=== PATIENT | male | born 1955 | race Caucasian/White ===

== ENCOUNTER 2024-10-26 08:49 | Outpatient (AMB) | payer OTHER, BC, SELFPAY ==
--- OUTSIDE RECORDS SUMMARY | 2024-10-26 08:59 | XMS_ITS | Encounter Summary ---
Author Organization [facility] Address [address] [place] [address] Care Team Providers Care Driveway Sealer Name Role Phone Sonali Rodriguez DO Primary Care Provider [phone] Reason for Visit * Reason Onset Date Comments information needed/screening recommended 025 Encounter Details Date Type Department Care Team ([facility] st Contact Info) Description 10/07/2024 Telephone Internal Medicine - [place] [address] [place] [phone] Sonali Rodriguez DO [address] [place] [address] information needed/screening recommended Social History Tobacco Use Types Packs/Day Years Used Date Smoking Tobacco: Former Cigarettes 0.5 13 0 04/13/1967 - 04/13/1980 Smokeless Tobacco: Never Alcohol Use Standard Drinks/Week Comments Yes 7 (1 standard drink = 0.6 oz pur e alcohol) 3 Housing Instability Answer Date Recorde d Are you worried that in the next 2 months you may not have stable housing? No 06/01/2024 Food Access & Nutrition Answer Date Rec orded Do you have access to a vari ety of food including fruits and vegetables? Yes 06/01/2024 Access to Healthcare Answer Date Record ed Within the last 3 months, [employer] many times did you visit the emergency department for your medical care? 1 06/01/2024 Health Literacy Answer Date Recorded How often do you need to hav e someone help you when you read instructions, pamphlets, or other written material from your doctor or pharmacy? Never 06/01/2024 Caregiver: How often do you need to have someone help you when you read instructions, pamphlets, or other written material from your doctor or pharmacy? Not on file 06/01/2024 Financial Risk Answer Date Recorded How hard is it for you to pa y for the very basics like food, housing, medical care, and air conditioning / heating? Somewhat hard 06/01/2024 Transportation Answer Date Recorded Has the lack of transportati on kept you from meetings, work, or from getting things needed for daily living? No Has the lack of transportati on kept you from medical appointments or from getting medications? No 06/01/2024 Social Isolation Answer Date Recorded How often do you feel lonely or isolated from th ose around you? Never 06/01/2024 Food Risk Answer Date Recorded Within the past 12 months we worried whether our food would run out before we got money to buy more. Never true 06/01/2024 Within the past 12 months th e food we bought just didn't last and we didn't have money to get more. Never true 06/01/2024 Dependent Care Answer Date Recorded Do you need help finding or paying for care for your loved ones. For example, exceptional children's teacher or elderly care for an older adult? No 06/01/2024 Education Answer Date Recorded Do you think completing more education or training, like finishing a GED, going to college, or learning a trade, would be helpful for you? Yes 06/01/2024 Employment and Income Answer Date Recor ded During the last four weeks, have you been actively looking for work? No 06/01/2024 Living Situation Answer Date Recorded What is your living situation? 0 06/01/2024 Interpersonal Safety Answer Date Record ed Physical Abuse 08/17/2024 Verbal Abuse 08/17/2024 Sex and Gender Information Value Date Recorded Sex Assigned at Not on file Legal Sex Male 1:29 PM EST Gender Identity Not on file Sexual Orientation Not on file documented as of this encounter Progress Notes * Micah Lua NP - 10/07/2024 4:19 PM EDT Screening tests can wait until PCP is back * Chanel Costello MA - 10/07/2024 11:45 AM EDT SHAHID: 2.26.25 Pendin.28.25 Order pending. * Marisol Garcia - 10/07/2024 11:36 AM EDT Pt called today stating that he got a message on [employer] that recommended that he get an abdominal aortic screening done. Please advise pt thank you documented in this encounter Plan of Treatment Upcoming Encounters Date Type Department Care Team (Late st Contact Info) Description 11/07/2024 9:00 AM EDT Office Visit Internal Medicine - [address] [phone] Tricia Patton NP [address] [place] [id number] 12/07/2024 9:30 AM EDT Office Visit Internal Medicine - [address] [phone] Sonali Rodriguez DO [address] [place] [id number] 01/12/2025 1:00 PM EDT Consult Vascular Surgery - [place] [address] [place] [phone] Tricia Rolle PA [address] [place] [id number] documented as of this encounter Visit Diagnoses Not on filedocumented in this encounter Additional Health Concerns Assessment Noted Time PHQ-9 Depression Total Score: 0 06/01/19 25 4:36 PM EST documented as of this encounter Care Teams Driveway Sealer Relationship Specialty Start Date End Date Sonali Rodriguez DO [address] [place] [address] [place] [address] PCP - General Internal Medicine 04/07/24 documented as of this encounter
--- OUTSIDE RECORDS SUMMARY | 2024-10-26 08:59 | XMS_ITS | Clinical Summary ---
Author Organization [facility] Address [address] [place] [address] Care Team Providers Care Engineer Specialist Name Role Phone Tigre Mora MD Primary Care Provider Unavailable Allergies No known active allergies Medications Medication Sig Dispensed Refills Start Date End Date Status lisinopril (PRINIVIL,ZESTRIL) tablet 5 mg Take 5 mg by mouth daily. 0 06/30/2020 Active pravastatin (PRAVACHOL) tablet 40 mg Take 60 mg by mouth daily. 0 06/30/2020 Active Lumigan 0.01 % ophthalmic drops 0 05/15/2020 Active betaxolol (BETOPTIC) 0.5 % ophthalmic solution 1 drop 2 (two) times a day. 0 Active tafluprost, PF, (Zioptan) 0.0015 % SOLN 0 A ctive Active Problems Problem Noted Date Diagnosed Date Primary osteoarthritis of right knee 10/21/2021 Tear of medial meniscus of knee, subsequent enco unter 10/21/2021 Family History Medical History Relation Name Comments Heart disease Brother Hyperlipidemia Brother Hypertension Brother Heart disease Father Heart disease Sister Relation Name Status Comments Brother Father Sister Social History Tobacco Use Types Packs/Day Years Used Date Smoking Tobacco: Former Smokeless Tobacco: Never Alcohol Use Standard Drinks/Week Comments Yes 0 (1 standard drink = 0.6 oz pur e alcohol) Sex and Gender Information Value Date Recorded Sex Assigned at Not on file Gender Identity Not on file Sexual Orientation Not on file Job Start Date Occupation Industry Not on file Not on file Not on file Last Filed Vital Signs Vital Sign Reading Time Taken Comments Blood Pressure - - Pulse - - Temperature - - Respiratory Rate - - Oxygen Saturation - - Inhaled Oxygen Concentration - - Weight 83 kg (183 lb) 03/10/2022 1:49 PM EST Height 170.2 cm (5' 7 ) 03/10/2022 1:49 PM EST Body Mass Index 28.66 03/10/2022 1:49 PM EST Plan of Treatment Health Maintenance Due Date Last Done Comments Hepatitis C Screening 1955 Depression Screening 1966 Preventative Health Evaluation 1972 Colon Cancer Screening (Colonoscopy) 10/21/1999 Fall Risk Assessment 10/21/2019 COVID-19 Vaccine ( season) 2023 08/29/2021, 01/30/2021, 06/28/2020, Additional history exists Influenza Vaccine (#1) 2024 2, 01/08/2021, 02/09/2020, Additional history exists RSV Adult > 60+ Yrs or (1 - 1-dose 75+ series) 2029 DTap / Tdap / Td (3 - Td or Tdap) 01/08/2031 01/08/2021, 05/26/2016, 11/02/2005 Pneumococcal Vaccine Completed 05/06/2021, 02/09/20 20 Shingrix-Zoster Vaccine Completed 04/01/2022, 04/02 Hepatitis B Vaccines Aged Out No long er eligible based on patient's age to complete this topic RSV Ped < 20 months Aged Out No longe r eligible based on patient's age to complete this topic Care Teams Engineer Specialist Relationship Specialty Start Date End Date Tigre Mora MD PCP - General Family Medicine 10/21/21
--- OUTSIDE RECORDS SUMMARY | 2024-10-26 09:00 | XMS_ITS ---
Author Name [facility] Organization Unknown Care Team Organization Name Specialty Phone Email Start Date End Da c[facility] EBER [facility] 03/13/2022 11/30/2023
--- OUTSIDE RECORDS SUMMARY | 2024-10-26 09:00 | XMS_ITS | Data Portability ---
Author Organization [place] - [facility], Allergy Address [address] [place] [address] Care Team Providers Care Cuff Setter Overlock Name Role Phone EBER CHAVARRIA Primary Care Provider [phone] Assessment Encounter Date Assessment Date Assessment LastModified by Organization Details LastModified Time 12/16/2023 12/16/2023 Physical exam revealed impacted cerumen bilaterally. Debrided to patient tolerance. No view was achieved of the tympanic membrane on either side. Patient is due for annual audiogram in a few weeks. I have recommended use of mineral oil in the interim, return for debridement, and we will update audiometric testing once the canals are clear. All questions were answered. [email or web address] Not available 12/16/2023 10:29:42 01/29/2024 01/29/2024 Cerumen successfully removed bilaterally, which patient tolerated well. Recommend audiometric testing but patient did not have time to stay for this today. He will return in 3 months for cerumen removal when updated audiometric testing. He will call in the interim with any issues that arise or any sudden change in hearing. Not available 01/29/2024 16:33:35 02/08/2024 02/08/2024 Recommendations : Follow up with referring provider. Amplification, pending medical clearance and pt interest. [email or web address] Not available 02/08/2024 09:26:09 05/03/2024 05/03/2024 Cerumen successfully removed bilaterally, which patient tolerated well. As the ears were rather deeply impacted, recommend switching from 6-month visits to 4-month. 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 Skin was intact and well moisturized today without evidence of flaking or otorrhea. Patient will be due for annual audiometric testing in January. Not available 05/03/2024 09:11:37 08/24/2024 08/24/2024 68yo male presents for cerumen impaction removal. Cerumen impaction removed bilaterally, which patient tolerated well. Otologic exam demonstrated TMs are intact with well-aerated middle ear spaces. Recommend a few drops of mineral oil nightly for 1 week prior to debridements. Recommend 3-4 month follow-up for cerumen removal, sooner with issues. [email or web address] Not available 08/24/2024 09:41:03 Plan of Treatment Reminders Order Date Submit Date Provider Last Modified By Organization Details Last Modified Time Details Appointments Establish ed 15 2024 09:30A M HERMAN SYKES PA-C Not available Not available Not available Lab None recorded. Referral None recorded. Procedures None recorded. Surgeries None recorded. Imaging None recorded. Medication Orders None recorded. Patient TargetsNo targets recorded. Patient InstructionsNo instructions recorded. Reason for Referral None Reported. Results Created Date Observation Date Name Description Value Unit Range Abnormal Flag Note LastModifiedBy Organization Detail LastModifiedTime 12/01/1905/23/2021 imagi ng/di agnos tic resul t No observ ation record ed. [email or web address] Not Available 20:24:18 12/01/19 24 01/23/2023 imagi ng/di agnos tic resul t No observ ation record ed. [email or web address] Not Available 20:24:22 12/01/19 24 02/13/2020 imagi ng/di agnos tic resul t No observ ation record ed. [email or web address] Not Available 20:24:35 12/01/1903/07/2019 imagi ng/di agnos tic resul t No observ ation record ed. [email or web address] Not Available 20:24:38 02/08/20 audio gram No observ ation record ed. [email or web address] Not Available 01/12 09:47:38 Result Notes None recorded. Problems Name Problem SNOMED Code Status Onset Date Resolution Date Notes Provider Name and Address Organization Details Recorded Time Bilateral tinnitus 45838903226 02 Active 2014 Tinnitus, bilateral ; Note: Date Diagnosed : 01/18/2015 10:11 AM (H93.13) Not Available [facility] 4 02:36:43 Asymmetri angelica sensorine ural hearing loss 964372176 Active 2014 Sensorine ural hearing loss asymmetri c; Note: Date Diagnosed : 07/20/2014 2:40 PM (389.16) Not Available [facility] 4 02:36:45 Superfici al mycosis 290148217 Active 2016 Other specified superfici al mycoses; Note: Date Diagnosed : 7 6:51 AM (B36.8) Not Available [facility] 4 02:36:42 Infective otitis externa of right ear 47490884930 48615 Active 2019 Other infective otitis externa, right ear; Note: Date Diagnosed : 08/08/2019 12:47 PM (H60.391) Not Available [facility] 4 02:36:34 Candidal otitis externa 87648942 Active 2014 Otomycosi s; Note: Date Diagnosed : 07/20/2014 2:40 PM (112.82) ; Start Date : 5 Stephany l otitis externa; Note: Date Diagnosed : 01/18/2015 9:16 AM (B37.84) [mapped from ICD9 code: 112.82] Not Available [facility] 4 02:36:41 Acute eczematoi d otitis externa 79856978 Active 2020 Acute eczematoi d otitis externa, bilateral ; Note: Date Diagnosed : 08/13/2020 9:31 AM (H60.543) Not Available [facility] 4 02:36:39 Impacted cerumen of bilateral ears 47633677975 49859 Active 2014 Impacted cerumen, bilateral ; Note: Date Diagnosed : 01/18/2015 9:16 AM (H61.23) [mapped from ICD9 code: 380.4] Not Available [facility] 4 02:36:45 Impacted cerumen 26385645 Active 2014 Impacted wax; Note: Date Diagnosed : 07/20/2014 2:40 PM (380.4) Not Available [facility] 4 02:36:33 Impacted cerumen in left ear 14806746034 89927 Active 2021 Impacted cerumen, left ear; Note: Changed from H61.21 to H61.22 (01/24/20 23 12:43 PM) , Date Diagnosed : 05/23/2021 9:07 AM (H61.21) Not Available [facility] 4 02:36:33 Sensorine ural hearing loss of bilateral ears 293749672 Active 2014 Sensorine ural hearing loss, bilateral ; Note: Date Diagnosed : 01/18/2015 9:41 AM (H90.3) Not Available [facility] 4 02:36:43 Seborrhei c dermatiti s 45902366 Active 2023 Seborrhei c dermatiti s, unspecifi ed; Note: Date Diagnosed : 07/08/2023 10:28 AM (L21.9) Not Available [facility] 4 02:36:41 Problem Notes None recorded. Procedures Surgical History Date Name Laterality Status Provider Name and Address Organization Details Recorded Time 5 Cerumen removal without microscope bilat completed HERMAN SYKES PA-C [address] [facility],[address], [address], [place] - [facility] 08/24/2024 09:39:50 5 Cerumen removal without microscope bilat completed HOLLEY COOK PA-C [address] [facility],[address], [address], [place] - [facility] 05/03/2024 09:10:20 4 Air & Speech Audio with Tymps - 70823, 30920 & 88246 completed FLOR HANLEY [address] [facility],[address], [address], [place] - [facility] 02/08/2024 09:25:38 4 Cerumen removal without microscope bilat completed HOLLEY COOK PA-C [address] [facility] [address], [place], [address], [facility] - [facility] 01/29/2024 16:33:12 4 Cerumen removal without microscope bilat completed HOLLEY COOK PA-C [address] [facility] [address], [place], [address], [facility] - [facility] 12/16/2023 10:29:01 Imaging Results None recorded. Procedure Notes None recorded. Medical Equipment None Reported. Medications Name Sig Start Date Stop Date Status Note LastModified by Organization Details LastModified Time cyclobenz aprine 10 mg tablet active Not Available Not Available No t Available pravastat in 40 mg tablet active Not Available Not Available Not Available clotrimaz ole-betam ethasone 1 %-0.05 % lotion 07/07 completed Medicatio n ID: [id number] Pr escribed By Name: FRANKIE Curry Name: Lotrisone Send Method: E-Prescri bed Subs Allowed: subs OK Specia l Instructi on: apply to external ear tid X 2 weeks Med icationGe nericName : Lotrisone Not Available Not Available Not Available brinzolam yodit 1 % eye drops,danna pension active Not Available Not Available Not Available aspirin 81 mg tablet,de layed release 2014 [place] Medic[place] ID: [id number] Dur ation Value: 90 Brand Name: aspirin S end Method: E-Prescri bed Subs Allowed: subs OK Medica tionGener icName: aspirin Not Available Not Available Not Available ciclopiro x 8 % topical solution 2016 active Medicatio n ID: [id number] Du ration Value: 14 Prescrib ed By Name: Patrice Bland Name: ciclopiro x Send Method: E-Prescri bed Subs Allowed: subs OK Specia l Instructi on: Apply 3 drops to affected ear canals 3 times a day for 2 weeks Med icationGe nericName : ciclopiro x Not Available Not Available Not Available amitripty line 25 mg tablet 04/25 completed Medic[place] n ID: [id number] Dur ation Value: 30 Brand Name: amitripty line Send Method: E-Prescri bed Subs Allowed: subs OK Medica tionGener icName: amitripty line Not Available Not Available Not Available econazole nitrate 1 % topical cream 2016 active Medicatio n ID: [id number] Du ration Value: 14 Prescrib ed By Name: Patrice Bland Name: econazole Send Method: E-Prescri bed Subs Allowed: subs OK Specia l Instructi on: Apply to affected skin on external ears 3 times a day for 2 weeks Med icationGe nericName : econazole Not Available Not Available Not Available clotrimaz ole-betam ethasone 1 %-0.05 % topical cream Apply 1 a small amount twice a day active Not Available Not Available No t Available clotrimaz ole 1 % topical solution 03/05 completed Medicatio n ID: [id number] Du ration Value: 14 Prescrib ed By Name: Patrice Bland Name: clotrimaz ole Send Method: E-Prescri bed Subs Allowed: subs OK Specia l Instructi on: 4 drops to affected ear three times a day Medic ationGene ricName: clotrimaz ole Not Available Not Available Not Available pramipexo le 0.25 mg tablet active Not Available Not Available No t Available pravastat in 20 mg tablet 04/25 completed Medicatio n ID: [id number] Br and Name: pravastat in Send Method: E-Prescri bed Subs Allowed: subs OK Medica tionGener icName: pravastat in Not Available Not Available Not Available lisinopri l 5 mg tablet active Not Available Not Available Not Available betaxolol 0.5 % eye drops active Not Available Not Available Not Available methylpre dnisolone 4 mg tablets in a dose pack active Not Available Not Available Not Available timolol maleate 0.5 % eye drops 04/25 completed Medicatio n ID: [id number] Du ration Value: 90 Brand Name: timolol maleate S end Method: E-Prescri bed Subs Allowed: subs OK Medica tionGener icName: timolol maleate Not Available Not Available Not Available fluocinol one acetonide oil 0.01 % ear drops 2 drop into both ears 2020 active Medicatio n ID: [id number] Pr escribed By Name: FRANKIE Curry Name: fluocinol one acetonide oil Send Method: E-Prescri bed Subs Allowed: subs OK Medica tionGener icName: fluocinol one acetonide oil Not Available Not Available Not Available taflupros t (PF) 0.0015 % eye drops in a dropperet te active Not Available Not Available Not Available Vitals Date Recorded Body height Body mass index (BMI) Body weight Provider Name and Address Organization Details Last Updated DateTime 05/03/2024 172.72 cm 28 kg/m2 65814 g Chanel Torrez [place] - [facility] 05/03/2024 08:54:40 Date Recorded Body height Body mass index (BMI) Body weight Provider Name and Address Organization Details Last Updated DateTime 08/24/2024 172.72 cm 27.4 kg/m2 84560.63 g INDER AMADEO [place] - [facility] 08/24/2024 09:21:27 Date Recorded Body height Body mass index (BMI) Body weight Provider Name and Address Organization Details Last Updated DateTime 12/16/2023 172.72 cm 28 kg/m2 11856 g Digna Grossman [place] - [facility] 12/16/2023 10:11:49 Date Recorded Body height Body mass index (BMI) Body weight Provider Name and Address Organization Details Last Updated DateTime 01/29/2024 172.72 cm 28 kg/m2 20634 g Chanel Torrez [place] - [facility] 01/29/2024 14:48:12 Social History None recorded. Functional Status None recorded. Mental Status None recorded. Family History Nothing Reported. Medical History No medical history recorded. Past Encounters Encounter ID Performer Location Encounter Start Date Encounter Closed Date Diagnosis/Indication Diagnosis SNOMED-CT Code Diagnosis ICD10 Code Diagnosis Note [id number] HOLLEY COOK PA-C [facility] [address] [address] 12/16/2023 10:00:38 12/16/2023 10:31:13 Impacted cerumen of bilateral ears 9348643201 321444 H61.23 [id number] HOLLEY COOK PA-C [facility] [address] [address] 01/29/2024 14:24:34 01/29/2024 15:22:41 Impacted cerumen of bilateral ears 5289706763 436412 H61.23 [id number] FLOR HANLEY [facility] [address] [address] 02/08/2024 09:25:05 02/08/2024 11:21:50 Sensorineural hearing loss of bilateral ears 830667342 H90.3 Audiologic al evaluation results:Ri ght ear:Normal sloping to moderate sensorineu ral hearing loss with excellent word recognitio n.Left ear:Normal sloping to moderate sensorineu ral hearing loss with excellent word recognitio n.Tympanom etry:Right Ear:Type ALeft Ear:Type A [id number] HOLLEY COOK PA-C [facility] [address] [address] 05/03/2024 08:46:23 05/03/2024 09:04:10 Impacted cerumen of bilateral ears 5972568472 386061 H61.23 Seborrheic dermatitis 50 338484 L21.9 Sensorineu ral hearing loss of bilateral ears 885152984 H90.3 [id number] HERMAN SYKES PA-C [facility] [address] [address] 08/24/2024 09:11:03 08/24/2024 09:38:56 Impacted cerumen of bilateral ears 0307136185 295513 H61.23 Sensorineu ral hearing loss of bilateral ears 340005825 H90.3 Health Concerns Section Related Observation LastModified by Organization Detai ls LastModified Time None Recorded Concern Status LastModified by Organization Details LastModified Time None Recorded Advance Directives Directive None Recorded Payers Insurance Date Sequence Insurance Name Policy Number Policy Sharif Covered Member ID Sharif Member ID Guarantor Name 05/03/2024 1 [facility] (MEDICARE REPLACEMENT/ ADVANTAGE - PPO) [id number] Luis Alberto Fuentes Janina [id number] Luis Alberto Fuentes Janina 12/16/2023 2 [facility] (PPO) [id number] Gretchen Shethreno [id number] Luis Alberto Fuentes Janina 08/24/2024 2 [facility] [employer] Gretchen Fuentes Janina [id number] Luis Alberto Fuentes Janina 08/24/2024 1 [employer] (MEDICARE REPLACEMENT/ ADVANTAGE - PPO) [id number] Luis Alberto Fuentes Janina [id number] Luis Alberto Fuentes Janina Notes Date Note Type Note Provider Name and Address Organization Details Recorded Time 12/16/2023 text/html 68-year-old male presents for evaluation of the ears. Denies perceived change in hearing. Has non-pulsatile tinnitus bilaterally that is well tolerated with masking and has not recently changed. Denies otalgia and otorrhea. Having some popping. Ears have been a bit itchy but the cream helps. Abides by dry ear precautions. Has been using baby oil bilaterally for several days, as he believes he has a cerumen impaction. Allergies have been flaring up. Does not wear hearing aids and denies Q-tip use. CAROLINE SANDOVAL MD [address] [place] [address], [phone], [facility] 12/16/2023 16:44:49 01/29/2024 text/html 68-year-old male presents for evaluation of the ears. Previously found to have cerumen impaction and has been using mineral oil. Reports a large chunk of cerumen spontaneously extruded from the left ear. Right ear still feels very full. There is no otalgia nor otorrhea. Denies Q-tip use. THONG DONG MD [address] [place] [address],[address], [address], [facility] 02/01/2024 07:56:05 02/08/2024 text/html Audiological Evaluation HPIReported bypatient.Hearing loss perceived:hearing loss in both ears: no differences noted between ears Onset:gradual Use of amplification or other hearing devices:none (does not use amplification) Tinnitus reported:both ears Sounds like:high pitched MARY JO FELDMAN, FLOR [address] [facility],[place] [address], [place], [address], [facility] - [facility] 02/08/2024 09:29:21 05/03/2024 text/html 68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 He reports the ears have been a little itchy but the cream resolves this nicely. He denies otalgia, otorrhea, and change in hearing. CAROLINE SANDOVAL MD [address] [facility],[place] [address], [place], [address], [facility] 05/03/2024 12:19:09 08/24/2024 text/html 68yo male presen ts for evaluation of the ears. Reports right muffled hearing. Denies ear pain, drainage, change in tinnitus, or Qtip use. 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 VAIBHAV PEÑA MD [address] [facility] [address], [place], [address], [facility] 08/24/2024 13:34:29
--- NOTE | 2024-10-26 09:12 | MHC.OFFVIS ---
Intake Visit Reasons: 6m PLMDS Allergies No Known Allergies Allergy (Verified 10/24/24 08:47) Medication List - Last Reconciled 10/26/24 by Moshe Finney MD betaxolol 0.5% drps ophthalmic (eye) brinzolamide 1% drps ophthalmic (eye) lisinopril 10 mg PO DAILY pramipexole 0.25 mg PO DAILY pravastatin 40 mg PO DAILY tafluprost (PF) 0.0015% drps ophthalmic (eye) HPI Comments Details: 68 years old right-handed man, a retired java j2ee software engineer, ambidextrous, with migraine, obstructive sleep apnea treated with CPAP, and periodic limb movement disorder of sleep. Overall he was doing okay using CPAP machine every night. Sometime he had restless leg type of symptoms at 08:00 while he went to bed round 11. Also he was still sometime feeling lightheadedness. At times he would sleepy during daytime and would take a brief nap. [facility] Medical History (Updated 10/26/24 @ 09:15 by Moshe Finney MD) Encephalopathy Migraine without aura Migraine equivalent syndrome Periodic limb movement disorder Sleep myoclonus HANSEL on CPAP Review of Systems Const Details: Constitutional:?No fever, chills, fatigue, weight loss, or night sweats. HEENT:?No headache, vision changes, hearing loss, nasal congestion, sore throat. Neurological:?No dizziness, syncope, seizures, numbness, tingling, weakness, tremors, memory loss. Psychiatric:?No anxiety, depression, mood swings, sleep disturbance, or hallucinations. Endocrine:?No heat/cold intolerance, polydipsia, polyuria, or hair/skin changes. Hematologic/Lymphatic:?No easy bruising, bleeding, or lymphadenopathy. Integumentary (Skin):?No rash, lesions, itching, or color changes. ? Physical Exam Neuro Other: Mental Status: Alert and oriented to person, place, and time. Normal attention. Normal spontaneous speech, fluency, and comprehension. No obvious issues with mood and memory. Affect is appropriate. Cranial Nerves: CN II: Visual collins full to confrontation, visual acuity intact. CN III, IV, : Pupils equal, round, reactive to light and accommodation. Extraocular movements are normal. CN V: Facial sensation is normal. CN VII: Facial movements symmetrical. CN VIII: Hearing intact to bedside conversation is normal. CN IX, X: Palate elevates symmetrically. CN XI: Shoulder shrug and head turn symmetrical. CN XII: Tongue midline without atrophy or fasciculations. Extrapyramidal: Full facial expressions and blinking. No rigidity. Movements are appropriate with no tremor or abnormality. Speech: Normal; no dysarthria or tremor. Assessment & Plan Assessment & Plan (1) Periodic limb movement disorder: Comment[place] [facility] [place] PLM arousal index 11.6, TST RDI 10.6. Code(s): G47.61 - Periodic limb movement disorder Category: Medical (2) HANSEL on CPAP: Code(s): G47.33 - Obstructive sleep apnea (adult) (pediatric) Category: Medical Plan Impression: a: HANSEL On CPAP b: Periodic limb movement disorder of sleep Rec: a: Pramipaxole 0.25mg at bedtime b: Recular CPAP c: Avoid alcohol, caffiene, or sugary food after 4pm Medications: New pramipexole 0.25 mg PO DAILY 90 tabs 1RF Coding Level of Care Code Est Pt Level 4 (14644) Diagnoses Periodic limb movement disorder G47.61 HANSEL on CPAP G47.33
== END 2024-10-26 09:23 | disposition home or self-care (01) ==
LOC: HO.HSM 08:49
PROVIDERS: PCP Family Medicine; Visit Provider Psychiatry & Neurology Neurology
DX: G47.61 Periodic limb movement disorder (principal); G47.33 Obstructive sleep apnea (adult) (pediatric)
CPT/HCPCS: 99214